=== PATIENT | male | born 1985 | race Caucasian/White ===

== ENCOUNTER 2017-07-04 19:52 | Emergency (ER) | payer OTHER ==
[~2017-07-04] VITALS: Ht 182.9 cm; Wt 139.6 kg
[~2017-07-04 19:52] MED LIST: LEVO500T19 PO; PRED10TA PO
[2017-07-04 19:58] VITALS: TEMP 36.4; Ht 182.9 cm; Wt 139.6 kg
[2017-07-04] MEDS ORDERED: LORAZEPAM 1 MG TAB PO STA (20:11)
--- NOTE | 2017-07-04 20:22 | EMERGENCY ROOM VISIT NOTE ---
History Report prepared by Aaron: William Green Under the Supervision of: Dr. Sin Richter M.D. First contact with patient: 19:54 Stated Complaint: SOB History of Present Illness The patient is a 32 year old male with a past medical history of bronchopneumonia, hypertension, and hyperlipidemia who presents to the ED with a cc of constant SOB beginning an hour ago. Positive for chest pain. Negative for nausea, vomiting, and leg edema. The patient states that he has a history of anxiety, and notes that his current symptoms feel similar to his previous anxiety attacks. He reports that his symptoms worsen when he takes a deep breath. The patient states that he feels a pressure in his chest but notes that it felt like he "tore a muscle in his chest" earlier. He notes that his chest pain went away on its own. He reports that he got over a cough and cold a few weeks ago. The patient states that he does not have a history of blood clots. Source of History: patient Onset: an hour ago Position: other (lungs) Quality: other (SOB) Timing: constant Modifying Factors (Worsening): breathing (deeply) Associated Symptoms: + chest pain, No nausea, No vomiting Note: The patient denies any leg edema. Review of Systems See HPI for pertinent positives and negatives. A total of ten systems were reviewed and were otherwise negative. Past Medical & Surgical Medical Problems: (1) Bronchopneumonia (2) Chest pain (3) Fracture, tooth (4) Hyperlipidemia (5) Hypertension (6) Nasal laceration (7) Overdose (8) Pain, dental (9) Shoulder contusion (10) Sprain of trapezium Family History FHx: cancer Heart disease Social History Smoking Status: Current Every Day Smoker Alcohol Use: occasionally Drug Use: marijuana Marital Status: single, Occupation Status: employed Current/Historical Medications No Active Prescriptions or Reported Meds Allergies Coded Allergies: Codeine (Verified Allergy, Mild, HIVES, 07/04/17) Penicillins (Verified Allergy, Unknown, rash,sob, 07/04/17) Physical Exam Vital Signs Date Time Temp Pulse Resp B/P (MAP) Pulse Ox O2 Delivery O2 Flow Rate FiO2 07/04/17 21:35 94 16 102/78 98 Room Air 07/04/17 19:58 36.4 119 16 137/89 97 Room Air 07/04/17 19:57 97 Room Air Physical Exam GENERAL: Awake, alert, well-appearing, NAD, obese, has tobacco in his mouth. HENT: Normocephalic, atraumatic. EYES: Normal conjunctiva. Sclera non-icteric. NECK: Supple. No nuchal rigidity. FROM. RESPIRATORY: CTAB, no rhonchi, wheezing, crackles CARDIAC: RRR, no MRG ABDOMEN: Soft, NTND, BS+ MSK: No chest wall TTP, no LE edema, negative Dwight's sign in legs. NEURO: GCS 15, CN 2-12 intact, moves all 4s on command SKIN: No rash or jaundice noted. Medical Decision & Procedures ER Provider Diagnostic Interpretation: Radiology results as stated below per my review and radiologist interpretation: SINGLE VIEW CHEST FINDINGS: 2 AP, portable, upright chest radiographs are compared to study dated 09/03/2015. The examination is degraded by portable technique and patient rotation. The cardiomediastinal silhouette is unremarkable. There is mild chronic elevation of the right hemidiaphragm. The lungs and pleural spaces are clear. No pneumothorax is seen. The bony thorax is grossly intact. IMPRESSION: No active disease in the chest. Electronically signed by: Jeevan Luo M.D. 07/04/2017 8:38 PM Medications Administered Medications (Trade) Dose Ordered Sig/Noemí Route Start Time Stop Time Status Last Admin Dose Admin Lorazepam (Ativan Tab) 1 mg NOW STAT PO 07/04/17 20:11 07/04/17 20:12 DC 07/04/17 20:26 1 MG ECG Per My Interpretation Indication: SOB/dyspnea Rate (beats per minute): 105 Rhythm: sinus tachycardia Findings: other (Normal intervals, right axis deviation, no STS changes or TWI) ED Course 1954: The patient was evaluated in room A12. A complete history and physical exam was performed. 2102: I reevaluated and updated the patient. 2137: I reevaluated the patient. Discussed results and discharge instructions: He verbalized understanding and agreement. The patient is ready for discharge. Medical Decision Nursing notes reviewed. Ancillary studies and prior records reviewed. The patient is a 32 year old male with a past medical history of bronchopneumonia, hypertension, and hyperlipidemia who presents to the ED with a cc of constant SOB beginning an hour ago. Positive for chest pain. Negative for nausea, vomiting, and leg edema. Differential diagnosis: Etiologies such as cardiac ischemia, aortic dissection, pulmonary embolism, pneumonia, pneumothorax, musculoskeletal, infections, pericarditis, myocarditis , esophageal rupture, gastrointestinal, as well as others were entertained. Patient was seen and evaluated the bedside. Patient was complaining of some shortness of breath. Patient did complain of some mild chest discomfort. It is nonexertional. Patient denies any hemoptysis, history of DVT or PE. Patient does have some early family history of his mother having an IN in her 40s. Patient is using tobacco at the bedside. Patient was told to dispose of this. Patient does state that he does have a history of some anxiety. Patient did have an EKG and a chest x-ray. Patient's chest x-ray is unremarkable. Patient's tachycardia resolved after being given some Ativan and after no longer chewing tobacco. Patient's EKG shows sinus tachycardia. Patient would be PERC positive. Patient will score of 1 less likely PE. Patient does not have any signs of ischemia seen on his EKG. Patient does have risk factors and was told that he does need to follow-up with his PCP. Given the patient's history and physical exam does not sound cardiac in nature and this may be more likely related to his anxiety as he felt improved after the Ativan and his tachycardia resolved. Patient stated that he would follow-up with his PCP. Patient was given strict follow-up, discharge, and return precautions. All questions were answered. Patient was deemed suitable for outpatient follow-up at this time. Patient agreed with the plan of care and was safely discharged home. Medication Reconcilliation Current Medication List: was personally reviewed by me Blood Pressure Screening Patient's blood pressure: Normal blood pressure Blood pressure disposition: Did not require urgent referral Impression Primary Impression: Chest pain Additional Impression: Tobacco abuse counseling Scribe Attestation The scribe's documentation has been prepared under my direction and personally reviewed by me in its entirety. I confirm that the note above accurately reflects all work, treatment, procedures, and medical decision making performed by me. Departure Information Dispostion Home / Self-Care Prescriptions No Active Prescriptions or Reported Meds Referrals Alice Márquez C.R.N.P. (PCP) Forms HOME CARE DOCUMENTATION FORM, IMPORTANT VISIT INFORMATION Patient Instructions Anxiety Body Response, Chest Pain - [facility], ED Smoking Cessation, [facility] Additional Instructions Please return to the emergency department if you have worsening or recurrent symptoms not amenable to at-home treatment. Please call for a follow-up appointment with her primary care physician. Please take your medications as prescribed. If you have other concerns and/or complaints please feel free to also call your primary care physician's office or return the ED for further evaluation, management, and treatment. You were found to have an elevated blood pressure today (>120 sytolic or >90 diastolic). Per medicare guidelines, you need to follow up with this blood pressure screening with your Primary Care Physician (PCP). For a new PCP call [phone]. Please follow-up with your primary care physician. Please return if you have any worsening symptoms, lower extremity swelling, or coughing up blood. Please consider tobacco cessation. You may take tylenol 650 mg every 6 hours as needed for pain. Take your medications as prescribed. If taking an antibiotic consider taking a probiotic and/or eating yogurt, but at the least, please take with food as it can cause upset stomach. If culture results are not available at discharge, if they are positive for concern of infection, you will be informed of the results as soon as they are available. If you were seen between 11pm and 7AM all radiology reads will be re-read by our in house staff. If any major discrepancies are discovered, you will be notified. You have been examined and treated today on an emergency basis only. This is not a substitute for, or an effort to provide, complete comprehensive medical care. It is impossible to recognize and treat all injuries or illnesses in a single emergency department visit. It is therefore important that you follow up closely with [facility], your PCP, and/or your specialist(s). Call as soon as possible for an appointment. Thank you for your time and consideration. I look forward to speaking with you again soon. Please don't hesitate to call us if you have any questions. Problem Qualifiers Primary Impression: Chest pain Chest pain type: unspecified Qualified Codes: R07.9 - Chest pain, unspecified
--- NOTE | 2017-07-04 20:39 | DIAGNOSTIC IMAGING REPORT ---
SINGLE VIEW CHEST CLINICAL HISTORY: Dyspnea. Atypical chest pain. FINDINGS: 2 AP, portable, upright chest radiographs are compared to study dated 09/03/2015. The examination is degraded by portable technique and patient rotation. The cardiomediastinal silhouette is unremarkable. There is mild chronic elevation of the right hemidiaphragm. The lungs and pleural spaces are clear. No pneumothorax is seen. The bony thorax is grossly intact. IMPRESSION: No active disease in the chest. Electronically signed by: Jeevan Luo M.D. 07/04/2017 8:38 PM Dictated Date/Time: 07/04/2017 8:37 PM
[2017-07-04 21:35] VITALS: BP 102/78; PULSE 94; O2SAT 98
== END 2017-07-04 21:46 | disposition home or self-care (01) ==
LOC: EDBD 19:52 → C.EDA 19:53
DX: R07.9 Chest pain, unspecified (principal); F17.200 Nicotine dependence, unspecified, uncomplicated; E78.5 Hyperlipidemia, unspecified; I10 Essential (primary) hypertension; Z82.49 Family history of ischemic heart disease and other diseases of the circulatory system; F12.90 Cannabis use, unspecified, uncomplicated; Z88.5 Allergy status to narcotic agent; Z88.0 Allergy status to penicillin

== ENCOUNTER 2021-06-11 15:21 | Inpatient (IN) ==
--- NOTE | 2021-06-11 15:46 | Emergency Department Note ---
Impression & Plan Depression with suicidal ideation, Nicotine dependence ED Provider Note NAME: JUSTYN PINK AGE: 35 SEX: M : 1985 ARRIVES VIA: [employer] INFORMANT: Patient, ED PROVIDER(S): Sin Richter MD Chief Complaint: Concern for mental wellness HPI: Patient presents due to concern for mental wellness. Police had reported the patient had run out of his home with a knife stating that he was in a harm himself. The patient currently denies this at this time. The patient relates that he did have a breakdown today. The patient was having some issues with his car had called his brother Kiran who is stated that he would get his car fixed at a dealership if he came and worked at his [email or web address] shop for the amount of time it took to pay off his debt for the vehicle. Patient was able to fix the car with a friend and thus no longer needed to go to his brothers but his brother essentially stated that if he is not going to come down regardless he does not want to speak with him again. Patient denies any current SI, HI, or AVH. The patient denies any psych history. The patient does admit to using cigarettes but denies any alcohol or drug use outside of marijuana. Patient reportedly was arrested for heroin use per case management. Patient states his sleep and appetite been appropriate. ROS: See HPI for pertinent positives and negatives. A total of 10 systems were reviewed and otherwise negative. Past medical history: See below Surgical history: See below Social history: See below Physical Exam: GENERAL: NAD, wearing a mask, non-toxic. EYE EXAM: Normal conjunctiva. PERRL, no anisocoria and EOM's grossly intact w/o pain. NECK: Supple, no nuchal rigidity, no adenopathy, non-tender. No signs of meningismus. LUNGS: Clear to auscultation. Normal chest wall mechanics. HEART: NSR, no MRG. ABDOMEN: Abdomen soft, non-tender, normo-active bowel sounds, no masses, no rebound or guarding. BACK: No CVA TTP. SKIN: No rashes and no bruising. UPPER EXTREMITIES: Upper extremities are grossly normal. LOWER EXTREMITIES: Grossly normal, no edema. NEURO EXAM: A&O x3, cranial nerves II-XII grossly intact, normal speech, moves all 4 extremities on command w/o issue. Differential diagnoses: Mood disorder, infection, hypoglycemia, electrolyte abnormalities, cardiac sources, intracerebral event, toxicologic, trauma, neurologic, as well as other pathologies. Course: Patient was seen and evaluated the bedside. Full history physical exam was performed. MDM: Patient was seen due to concern for mental wellness. Blood work was obtained and the patient was deemed medically cleared and seen and evaluated by the psych returned case inspector. Was recommended that the patient stay for inpatient treatment. The 302 was upheld. Referral was made to 3 S. patient was signed out to Dr. Peña pending reevaluation and disposition. Past Med/Surg History Medical History Hyperlipidemia Hypertension Surgical History History of cholecystectomy Hx of appendectomy Family History Mother Breast cancer Myocardial infarction Grandfather (Maternal) Myocardial infarction Grandmother (Maternal) Myocardial infarction Aunt Myocardial infarction Uncle Myocardial infarction Denies family history of Ovarian cancer Prostate cancer Colorectal cancer Social History Smoking Status: Current every day smoker Tobacco Type: Cigarettes Age Started Using Tobacco: 35; packs per day: 0.5; Years Smoked: 1; Cigarettes Per Day: 10-cig/day, patient also vapes and chews tobacco-1 can /3days; Second Hand Exposure: Yes; Hx Alcohol Use: No Hx Substance Use: No Preferred Language: Armenian Communication Ability: Effective Visual Impairment: No Limitations Hearing Ability: Normal Wire Frame Dipper Required: No marital status: Current Living Situation: Spouse and Family current occupational status: employed current occupation: Cook How many Children do You have: 3 Feels Safe at Home: Yes Childhood Exposure to Second-Hand Smoke: Yes caffeine: Yes during the past year weight has: decreased > 10 lbs Dental Care, Regularly: Yes Physical Activity Frequency: Daily Seatbelt Use: never Sunscreen Use: No Assistive Devices: None Allergies Allergies Allergy/AdvReac Type Severity Reaction Status Date / Time codeine Allergy Mild HIVES Verified 06/11/21 16:34 Penicillins Allergy Unknown rash,sob Verified 06/11/21 16:34 Home Meds Home Medications Medication Instructions Recorded Confirmed No Known Home Medications 06/11/21 06/11/21 Results & Data (ED) Vital Signs Vital Signs - 24 hr 06/11/21 15:46 Temperature 36.4 C L Temperature Source Oral Pulse Rate 108 H Respiratory Rate 18 Blood Pressure 150/108 H Blood Pressure Mean 122 Pulse Oximetry 98 Oxygen Delivery Method Room Air Sepsis Recent Fever Within 48 Hours No Sepsis New/Unexplained Change in Mental Status No Sepsis Action Taken by Nursing No Action Required Home Medications Current Medication List: was personally reviewed by me Laboratory Data Attestation: I reviewed the patient's lab results. Result diagrams: 06/11/21 16:34 06/11/21 16:34 Lab Results 06/11/21 06/11/21 06/11/21 Range/Units 16:34 16:34 16:34 WBC 9.37 (4.8-10.8) K/uL RBC 5.14 (4.7-6.1) M/uL Hgb 16.3 (14.0-18.0) g/dL Hct 46.9 (42-52) % MCV 91.2 (80-100) fL MCH 31.7 (25-34) pg MCHC 34.8 (32-36) g/dL RDW Std Deviation 43.8 (36.4-46.3) fL RDW Coeff of [place] 13.0 (11.5-14.5) % Plt Count 310 (130-400) K/uL MPV 9.6 (7.4-10.4) fL Immature Gran % (Auto) 0.3 % Neut % (Auto) 74.8 % Lymph % (Auto) 14.1 % [place] % (Auto) 8.1 % Eos % (Auto) 2.1 % Baso % (Auto) 0.6 % Neut # (Auto) 7.00 H (1.4-6.5) K/uL Lymph # (Auto) 1.32 (1.2-3.4) K/uL [place] # (Auto) 0.76 H (0.11-0.59) K/uL Eos # (Auto) 0.20 (0-0.5) K/uL Baso # (Auto) 0.06 (0-0.2) K/uL Immature Gran # (Auto) 0.03 H (0.00-0.02) K/uL Sodium 140 (136-145) mmol/L Potassium 4.0 (3.5-5.1) mmol/L Chloride 105 (98-107) mmol/L Carbon Dioxide 28 (21-32) mmol/L Anion Gap 7 (3-11) BUN 12 (6-23) mg/dl Creatinine 0.93 (0.6-1.4) mg/dl Est Cr Clr Drug Dosing 130.3 ml/min Est GFR ( Amer) 122.8 ml/min Est GFR (Non-Af Amer) 106.0 ml/min BUN/Creatinine Ratio 12.9 (10-20) Glucose 87 (70-99(Fasting)) mg/dl Calcium 9.9 (8.5-10.1) mg/dl Total Bilirubin 0.5 (0.2-1.0) mg/dl AST 53 H (13-39) U/L ALT 102 H (7-52) U/L Alkaline Phosphatase 67 (34-104) U/L Total Protein 8.1 (6.0-8.3) gm/dl Albumin 4.6 (3.4-5.0) gm/dl Globulin 3.5 (2.5-4.0) gm/dl Albumin/Globulin Ratio 1.3 (0.9-2) TSH 0.986 (0.300-4.500) uIu/ml Urine Color Urine Appearance (Clear) Urine pH (4.5-7.5) Ur Specific [place] (1.000-1.030) Urine Protein (Negative) Urine Glucose (UA) (Negative) Urine Ketones (Negative) Urine Blood (Negative) Urine Nitrite (Negative) Urine Bilirubin (Negative) Urine Urobilinogen (Negative) Ur Leukocyte Esterase (Negative) Salicylates (3.0-30) mg/dl Urine Opiates Screen (Neg) Ur Methadone, Qual (Neg) Acetaminophen (10-30) ug/ml Urine Barbiturates (Neg) Ur Phencyclidine (PCP) (Neg) U Amphetamin/Meth Scrn (Neg) MDMA (Ecstasy) Screen (Neg) U Benzodiazepines Scrn (Neg) Ur Cocaine Metabolite (Neg) U Marijuana (THC) Screen (Neg) Ethyl Alcohol mg/dL (<10.0) mg/dl 06/11/21 06/11/21 06/11/21 Range/Units 16:34 16:34 16:40 WBC (4.8-10.8) K/uL RBC (4.7-6.1) M/uL Hgb (14.0-18.0) g/dL Hct (42-52) % MCV (80-100) fL MCH (25-34) pg MCHC (32-36) g/dL RDW Std Deviation (36.4-46.3) fL RDW Coeff of [place] (11.5-14.5) % Plt Count (130-400) K/uL MPV (7.4-10.4) fL Immature Gran % (Auto) % Neut % (Auto) % Lymph % (Auto) % [place] % (Auto) % Eos % (Auto) % Baso % (Auto) % Neut # (Auto) (1.4-6.5) K/uL Lymph # (Auto) (1.2-3.4) K/uL [place] # (Auto) (0.11-0.59) K/uL Eos # (Auto) (0-0.5) K/uL Baso # (Auto) (0-0.2) K/uL Immature Gran # (Auto) (0.00-0.02) K/uL Sodium (136-145) mmol/L Potassium (3.5-5.1) mmol/L Chloride (98-107) mmol/L Carbon Dioxide (21-32) mmol/L Anion Gap (3-11) BUN (6-23) mg/dl Creatinine (0.6-1.4) mg/dl Est Cr Clr Drug Dosing ml/min Est GFR ( Amer) ml/min Est GFR (Non-Af Amer) ml/min BUN/Creatinine Ratio (10-20) Glucose (70-99(Fasting)) mg/dl Calcium (8.5-10.1) mg/dl Total Bilirubin (0.2-1.0) mg/dl AST (13-39) U/L ALT (7-52) U/L Alkaline Phosphatase (34-104) U/L Total Protein (6.0-8.3) gm/dl Albumin (3.4-5.0) gm/dl Globulin (2.5-4.0) gm/dl Albumin/Globulin Ratio (0.9-2) TSH (0.300-4.500) uIu/ml Urine Color Yellow Urine Appearance Clear (Clear) Urine pH 5.5 (4.5-7.5) Ur Specific [place] 1.014 (1.000-1.030) Urine Protein Negative (Negative) Urine Glucose (UA) Negative (Negative) Urine Ketones Negative (Negative) Urine Blood Negative (Negative) Urine Nitrite Negative (Negative) Urine Bilirubin Negative (Negative) Urine Urobilinogen Negative (Negative) Ur Leukocyte Esterase Negative (Negative) Salicylates < 3.0 L (3.0-30) mg/dl Urine Opiates Screen (Neg) Ur Methadone, Qual (Neg) Acetaminophen < 3 L (10-30) ug/ml Urine Barbiturates (Neg) Ur Phencyclidine (PCP) (Neg) U Amphetamin/Meth Scrn (Neg) MDMA (Ecstasy) Screen (Neg) U Benzodiazepines Scrn (Neg) Ur Cocaine Metabolite (Neg) U Marijuana (THC) Screen (Neg) Ethyl Alcohol mg/dL < 10.0 (<10.0) mg/dl 06/11/21 Range/Units 16:40 WBC (4.8-10.8) K/uL RBC (4.7-6.1) M/uL Hgb (14.0-18.0) g/dL Hct (42-52) % MCV (80-100) fL MCH (25-34) pg MCHC (32-36) g/dL RDW Std Deviation (36.4-46.3) fL RDW Coeff of [place] (11.5-14.5) % Plt Count (130-400) K/uL MPV (7.4-10.4) fL Immature Gran % (Auto) % Neut % (Auto) % Lymph % (Auto) % [place] % (Auto) % Eos % (Auto) % Baso % (Auto) % Neut # (Auto) (1.4-6.5) K/uL Lymph # (Auto) (1.2-3.4) K/uL [place] # (Auto) (0.11-0.59) K/uL Eos # (Auto) (0-0.5) K/uL Baso # (Auto) (0-0.2) K/uL Immature Gran # (Auto) (0.00-0.02) K/uL Sodium (136-145) mmol/L Potassium (3.5-5.1) mmol/L Chloride (98-107) mmol/L Carbon Dioxide (21-32) mmol/L Anion Gap (3-11) BUN (6-23) mg/dl Creatinine (0.6-1.4) mg/dl Est Cr Clr Drug Dosing ml/min Est GFR ( Amer) ml/min Est GFR (Non-Af Amer) ml/min BUN/Creatinine Ratio (10-20) Glucose (70-99(Fasting)) mg/dl Calcium (8.5-10.1) mg/dl Total Bilirubin (0.2-1.0) mg/dl AST (13-39) U/L ALT (7-52) U/L Alkaline Phosphatase (34-104) U/L Total Protein (6.0-8.3) gm/dl Albumin (3.4-5.0) gm/dl Globulin (2.5-4.0) gm/dl Albumin/Globulin Ratio (0.9-2) TSH (0.300-4.500) uIu/ml Urine Color Urine Appearance (Clear) Urine pH (4.5-7.5) Ur Specific [place] (1.000-1.030) Urine Protein (Negative) Urine Glucose (UA) (Negative) Urine Ketones (Negative) Urine Blood (Negative) Urine Nitrite (Negative) Urine Bilirubin (Negative) Urine Urobilinogen (Negative) Ur Leukocyte Esterase (Negative) Salicylates (3.0-30) mg/dl Urine Opiates Screen Neg (Neg) Ur Methadone, Qual Neg (Neg) Acetaminophen (10-30) ug/ml Urine Barbiturates Neg (Neg) Ur Phencyclidine (PCP) Neg (Neg) U Amphetamin/Meth Scrn Neg (Neg) MDMA (Ecstasy) Screen Neg (Neg) U Benzodiazepines Scrn Neg (Neg) Ur Cocaine Metabolite Neg (Neg) U Marijuana (THC) Screen Pos H (Neg) Ethyl Alcohol mg/dL (<10.0) mg/dl Discharge Plan Visit Data Chief Complaint: Mental Health Evaluation Stated Complaint: MENTAL HEALTH EVAL ED Provider: Sin Richter Discharge Problem: Depression with suicidal ideation, Nicotine dependence Patient Disposition: Still a Patient Forms Stand Alone Forms: [facility], Suicide Prevention Resources Prescriptions Prescriptions: No Action No Known Home Medications RF: 0 Referrals Referrals: Rose Black MD [Primary Care Provider] -
[2021-06-11 16:53] LABS: Appearance Urine Clear (Clear); Bilirubin Urine Negative (Negative); Blood Urine Negative (Negative); Color Urine Yellow; Glucose Urine UA Negative (Negative); Ketones Urine Negative (Negative); Leukocyte Esterase Urine Negative (Negative); Nitrite Urine Negative (Negative); Protein Urine Negative (Negative); Specific Gravity Urine 1.014 (1.000-1.030); Urobilinogen Urine Negative (Negative); pH Urine 5.5 (4.5-7.5)
[2021-06-11 17:01] LABS: Basophils # (auto) 0.06 K/uL (0-0.2); Basophils % (auto) 0.6 %; Eosinophils % (auto) 2.1 %; Hematocrit (blood only) 46.9 % (42-52); Hemoglobin 16.3 g/dL (14.0-18.0); Immature Granulocytes # (auto) 0.03 K/uL (0.00-0.02); Immature Granulocytes % (auto) 0.3 %; Lymphocytes # (auto) 1.32 K/uL (1.2-3.4); Lymphocytes % (auto) 14.1 %; Mean Corpuscular Hemoglobin 31.7 pg (25-34); Mean Corpuscular Hgb Conc 34.8 g/dL (32-36); Mean Corpuscular Volume 91.2 fL (80-100); Mean Platelet Volume 9.6 fL (7.4-10.4); Monocytes # (auto) 0.76 K/uL (0.11-0.59); Monocytes % (auto) 8.1 %; Neutrophils % (auto) 74.8 %; Platelet Count 310 K/uL (130-400); RDW Standard Deviation 43.8 fL (36.4-46.3); Red Blood Count 5.14 M/uL (4.7-6.1); White Blood Count 9.37 K/uL (4.8-10.8)
[2021-06-11 17:13] LABS: Amphetamines+Metham, Urine Neg (Neg); Barbiturates, Urine Neg (Neg); Benzodiazepine, Urine Neg (Neg); Cocaine, Urine Neg (Neg); MDMA (Ecstacy), Urine Neg (Neg); Methadone, Urine Neg (Neg); Opiate, Urine Neg (Neg); Phencyclidine, Urine Neg (Neg)
[2021-06-11 17:20] LABS: Albumin Globulin Ratio 1.3 (0.9-2); Albumin Level 4.6 gm/dl (3.4-5.0); BUN Creatinine Ratio 12.9 (10-20); Bilirubin,Total 0.5 mg/dl (0.2-1.0); Calcium 9.9 mg/dl (8.5-10.1); Creatinine Clr Calc Pharmacy 130.3 ml/min; Est GFR (African American) 122.8 ml/min; Globulin 3.5 gm/dl (2.5-4.0); Total Protein 8.1 gm/dl (6.0-8.3)
[2021-06-11 17:30] LABS: Acetaminophen < 3 ug/ml (10-30); Salicylate < 3.0 mg/dl (3.0-30)
[2021-06-11] MEDS ORDERED: HALOPERIDOL LACTATE 5 MG/ML 1 ML VIAL IM STA (19:25)
[2021-06-11] MEDS ORDERED: LORazepam 2 MG/1 ML VIAL IM STA (19:25)
[2021-06-11] MEDS ORDERED: NICOTINE 21 MG/24 HR TDSY TD STA (22:23)
[2021-06-11] MEDS ORDERED: ACETAMINOPHEN 500 MG TAB PO STA (22:23)
[2021-06-12] MEDS ORDERED: ALUMINUM/MAGNESIUM SUSP 30 ML UDC PO PRN (00:19)
[2021-06-12] MEDS ORDERED: MAGNESIUM HYDROXIDE SUSP 30 ML UDC PO PRN (00:19)
[2021-06-12] MEDS ORDERED: SODIUM CHLORIDE 0.65% NA SOLN 45 ML (OCEAN) PRN (00:19)
[2021-06-12] MEDS ORDERED: BISMUTH SUBSALICYLATE LIQD 236 ML PO PRN (00:19)
[2021-06-12] MEDS ORDERED: ACETAMINOPHEN 325 MG TAB PO PRN (00:19)
[2021-06-12] MEDS ORDERED: hydrOXYzine HCl 25 MG TAB PO PRN ×2 (00:19)
[2021-06-12] MEDS ORDERED: haloperidoL 5 MG TAB PO PRN (06:53)
[2021-06-12] MEDS ORDERED: HALOPERIDOL LACTATE 5 MG/ML 1 ML VIAL IM PRN ×2 (06:55→13:12)
[2021-06-12] MEDS ORDERED: LORazepam 2 MG/1 ML VIAL IM PRN (06:56)
[2021-06-12] MEDS ORDERED: LORazepam 1 MG TAB PO PRN (06:57)
--- NOTE | 2021-06-12 12:57 | History & Physical ---
Date of Service June 12, 2021 Impression / Recommendations Impression Stephane is a 35 yo male with a reported (third libertarian) Wellbutrin OD this summer, hx of substance abuse with legal ramifications, hx of [facility] time/felony conviction who has been increasingly irritable in the past few days due to financial and relationship stressors. There is no evidence of cynthia or psychosis on exam. Differential includes unspecified impulse control disorder, intermittent explosive disorder, personality disorder (antisocial vs. borderline PD), and adjustment disorder. (1) Intermittent explosive disorder: The patient was admitted to the [facility] ([facility] mental health unit) on q15 min checks (behavioral with suicide precautions) for safety. The patient denies need for outpatient follow up and is difficult to engage in group programming as he is so focussed on discharge. Brother was contacted for additional collateral and states patient has never acted out with him, he is working with patient's girlfriend and separately with patient here on safety planning. The patient's girlfriend was educated re: [place] [facility] and is in the process of vacating the apartment to stay with family. Inventory Assets Strengths: supportive brother. Has not required prns Needs: improved coping skills, structured work programming Risk Factors Assessment Male: Yes : Yes Do You Have Access To A Gun?: No Substance Use Disorders: Yes (past) Previous Attempt: Yes (he and girlfriend differ on reports) Previous Psychiatric Hospitalization: No Protective Factors Assessment Employed: No (lost job 3 days ago) Stable Relationships: No Supportive Family: Yes Psychiatric History Identifying Data STEPHANE PINK is a 35-year-old M who currently lives in [place], has no formal psych history, and was admitted on 06/12/21 00:20 on a 302 involuntary commitment for suicidal threats. Chief Complaint "I don't need to be here, you can ask anyone. This is really going to mess up my job". History of Present Illness Patient presented to the ED on a box B warrant by police for reportedly having disruptive behavior outside of his apartment, threatening to kill himself with a knife. The patient is quite irritable re: his "being put in the crazy gonzalez" when he is Oriental Orthodox and would never harm himself. He admits he has been under alot of stress since Sunday when he and then his girlfriend loss their jobs and his Jeep broke down. 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 He believes it was his girlfriend who called the police and states that he grabbed a knife impulsively as upset and couldn't process how to move 3 hours away so quickly and didn't want to argue with his brother. He denies leaving their unit with a knife, "I just threw it right back into the sink". He cannot describe the knife, "it was just there". He denies any psychiatric symptoms prior to Sunday and states it's his right to get angry. He states that his girlfriend is traumatized over what happened with the police and they will face significant financial difficulties if he is not able to "pack up and move today to start work tomorrow." He gave permission to speak with his girlfriend and brother for collateral. He states that his brother had arranged for 2 weeks in a hotel for him to get settled. Of note he has been incarcerated in the past for charges such as corruption of minors, drug paraphenalia. There is no evidence that he is currently on probation but he has charges pending. Staff spoke with girlfrienkenneth who notes there are no guns in the home (patient has a hx of felony conviction). She reported calling police out of fear for herself and patient as he has made threats in the past to harm her and her ex-. She denied being threatened in yesterday's outburst. She does not plan to file a PFA. She reports that he had Wellbutrin OD in the summer which was significant enough to cause a seizure but she did not involve crisis at that time out of fear of retribution. She does not plan to relocate with patient to [place] tomorrow and plans to move out and end the relationship. Past Psychiatric History Current Psychiatric Diagnosis: denies psychiatric diagnosis Outpatient Services: none Previous Psych Admissions: none Do You Have Access To A Gun?: No Describe Attempts in the Past: patient denies ever taking Wellbutrin, surescripts verifies script Past Medication Trials: denies but see Wellbutrin comment Additional Notes: unclear if he was abusing Wellbutrin or if intentional OD, girlfriend reports witnessing a seizure Allergies Allergy/AdvReac Type Severity Reaction Status Date / Time codeine Allergy Mild HIVES Verified 06/11/21 16:34 Penicillins Allergy Unknown rash,sob Verified 06/11/21 16:34 Home Medications Medication Instructions Recorded Confirmed Type No Known Home Medications 06/11/21 06/11/21 History Family History Family History of: None Alcohol History Hx of Alcohol Use Over the Past 12 Months: No AUDIT Total Score: 0 Smoking Use Have You Smoked or Used Tobacco Products in the Last 30 Days: Yes tobacco type: cigarettes and e-cigarettes Smoking Status: Current every day smoker Smoking packs per day: 2 Substance History Hx of Prescription Med Misuse Over the Past 12 Months: No Hx of Over the Counter Med Misuse Over the Past 12 Months: No Hx of Inhalent Misuse Over the Past 12 Months: No Hx of Organic Substance Use Over the Past 12 Months: Yes (often 06/11/2021) Hx of Illegal Substances/Street Drug Use Over Past 12 Months: Yes (patient was arrested for heroin use per nurse case manager) Problems as a Result of Past Substance Use: Job Loss and Arrested Personal History Living Arrangements: Apartment Employment Status: Unemployed Marital Status: Living w/ Signif. Other Beliefs That Will Affect Care: None Current Legal Problems: Yes (see HPI) Patient History Medical History Hyperlipidemia Hypertension Surgical History History of cholecystectomy Hx of appendectomy Family History Mother Breast cancer Myocardial infarction Grandfather (Maternal) Myocardial infarction Grandmother (Maternal) Myocardial infarction Aunt Myocardial infarction Uncle Myocardial infarction Denies family history of Ovarian cancer Prostate cancer Colorectal cancer Social History Smoking Status: Current every day smoker Tobacco Type: Cigarettes Age Started Using Tobacco: 35; packs per day: 0.5; Years Smoked: 1; Cigarettes Per Day: 10-cig/day, patient also vapes and chews tobacco-1 can /3days; Second Hand Exposure: Yes; Hx Alcohol Use: No Hx Substance Use: No Preferred Language: Faroese Communication Ability: Effective Visual Impairment: No Limitations Hearing Ability: Normal Fitness Professional Required: No Beliefs That Will Affect Care: None marital status: Current Living Situation: Spouse and Family current occupational status: employed current occupation: Cook How many Children do You have: 3 Feels Safe at Home: Yes Childhood Exposure to Second-Hand Smoke: Yes caffeine: Yes during the past year weight has: decreased > 10 lbs Dental Care, Regularly: Yes Physical Activity Frequency: Daily Seatbelt Use: never Sunscreen Use: No Assistive Devices: None Review of Systems Review of Systems: All systems reviewed & are unremarkable except as noted in HPI & below Physical Exam Psychiatric: Orientation: alert and oriented x 3 Apperance: appropriately dressed and appropriately groomed Eye Contact: good eye contact Motor Behavior: no abnormal motor movements Speech: + loud speech (but not pressured) Affect: + irritable affect Mood: + angry mood Thought Process: goal directed thought process Thought Content: reality based without delusions Suicidal Thoughts: denies suicidal thoughts Homicidal Thoughts: denies homicidal thoughts Hallucinations: no auditory hallucinations and no visual hallucinations Cognition: attention grossly intact and language grossly intact Estimated Intelligence: consistent with education level Insight: + limited insight Judgement: + limited judgement Vital Signs (Past 24 Hours): Last Vital Signs Temp 37 C 06/12/21 06:42 Pulse 94 H 06/12/21 06:43 Resp 16 06/12/21 06:42 BP 135/88 06/12/21 06:43 Pulse Ox 96 06/11/21 23:40 Exam Statement: A physical exam was performed in the ED by Dr. Richter for the purposes of medical clearance. I accept that physical as correct and adequate for the purposes of the inpatient physical exam. Results & Data ([facility]) Laboratory Results Laboratory Results - last 24 hr 06/11/21 06/11/21 06/11/21 16:34 16:34 16:34 WBC 9.37 RBC 5.14 Hgb 16.3 Hct 46.9 MCV 91.2 MCH 31.7 MCHC 34.8 RDW Std Deviation 43.8 RDW Coeff of Winston 13.0 Plt Count 310 MPV 9.6 Immature Gran % (Auto) 0.3 Neut % (Auto) 74.8 Lymph % (Auto) 14.1 Shelby % (Auto) 8.1 Eos % (Auto) 2.1 Baso % (Auto) 0.6 Neut # (Auto) 7.00 H Lymph # (Auto) 1.32 Shelby # (Auto) 0.76 H Eos # (Auto) 0.20 Baso # (Auto) 0.06 Immature Gran # (Auto) 0.03 H Sodium 140 Potassium 4.0 Chloride 105 Carbon Dioxide 28 Anion Gap 7 BUN 12 Creatinine 0.93 Est Cr Clr Drug Dosing 130.3 Est GFR ( Amer) 122.8 Est GFR (Non-Af Amer) 106.0 BUN/Creatinine Ratio 12.9 Glucose 87 Calcium 9.9 Total Bilirubin 0.5 AST 53 H ALT 102 H Alkaline Phosphatase 67 Total Protein 8.1 Albumin 4.6 Globulin 3.5 Albumin/Globulin Ratio 1.3 TSH 0.986 Urine Color Urine Appearance Urine pH Ur Specific [place] Urine Protein Urine Glucose (UA) Urine Ketones Urine Blood Urine Nitrite Urine Bilirubin Urine Urobilinogen Ur Leukocyte Esterase Nasal Screen MRSA (PCR) Salicylates Urine Opiates Screen Ur Methadone, Qual Acetaminophen Urine Barbiturates Ur Phencyclidine (PCP) U Amphetamin/Meth Scrn MDMA (Ecstasy) Screen U Benzodiazepines Scrn Ur Cocaine Metabolite U Marijuana (THC) Screen U Marijuana THC Carboxy Drug Screen Comment Ethyl Alcohol mg/dL SARS-CoV-2, RNA, NAAT 06/11/21 06/11/21 06/11/21 16:34 16:34 16:40 WBC RBC Hgb Hct MCV MCH MCHC RDW Std Deviation RDW Coeff of [place] Plt Count MPV Immature Gran % (Auto) Neut % (Auto) Lymph % (Auto) [place] % (Auto) Eos % (Auto) Baso % (Auto) Neut # (Auto) Lymph # (Auto) [place] # (Auto) Eos # (Auto) Baso # (Auto) Immature Gran # (Auto) Sodium Potassium Chloride Carbon Dioxide Anion Gap BUN Creatinine Est Cr Clr Drug Dosing Est GFR ( Amer) Est GFR (Non-Af Amer) BUN/Creatinine Ratio Glucose Calcium Total Bilirubin AST ALT Alkaline Phosphatase Total Protein Albumin Globulin Albumin/Globulin Ratio TSH Urine Color Yellow Urine Appearance Clear Urine pH 5.5 Ur Specific [place] 1.014 Urine Protein Negative Urine Glucose (UA) Negative Urine Ketones Negative Urine Blood Negative Urine Nitrite Negative Urine Bilirubin Negative Urine Urobilinogen Negative Ur Leukocyte Esterase Negative Nasal Screen MRSA (PCR) Salicylates < 3.0 L Urine Opiates Screen Ur Methadone, Qual Acetaminophen < 3 L Urine Barbiturates Ur Phencyclidine (PCP) U Amphetamin/Meth Scrn MDMA (Ecstasy) Screen U Benzodiazepines Scrn Ur Cocaine Metabolite U Marijuana (THC) Screen U Marijuana THC Carboxy Drug Screen Comment Ethyl Alcohol mg/dL < 10.0 SARS-CoV-2, RNA, NAAT 06/11/21 06/11/21 06/11/21 16:40 16:40 22:08 WBC RBC Hgb Hct MCV MCH MCHC RDW Std Deviation RDW Coeff of [place] Plt Count MPV Immature Gran % (Auto) Neut % (Auto) Lymph % (Auto) [place] % (Auto) Eos % (Auto) Baso % (Auto) Neut # (Auto) Lymph # (Auto) [place] # (Auto) Eos # (Auto) Baso # (Auto) Immature Gran # (Auto) Sodium Potassium Chloride Carbon Dioxide Anion Gap BUN Creatinine Est Cr Clr Drug Dosing Est GFR ( Amer) Est GFR (Non-Af Amer) BUN/Creatinine Ratio Glucose Calcium Total Bilirubin AST ALT Alkaline Phosphatase Total Protein Albumin Globulin Albumin/Globulin Ratio TSH Urine Color Urine Appearance Urine pH Ur Specific [place] Urine Protein Urine Glucose (UA) Urine Ketones Urine Blood Urine Nitrite Urine Bilirubin Urine Urobilinogen Ur Leukocyte Esterase Nasal Screen MRSA (PCR) Salicylates Urine Opiates Screen Neg Ur Methadone, Qual Neg Acetaminophen Urine Barbiturates Neg Ur Phencyclidine (PCP) Neg U Amphetamin/Meth Scrn Neg MDMA (Ecstasy) Screen Neg U Benzodiazepines Scrn Neg Ur Cocaine Metabolite Neg U Marijuana (THC) Screen Pos H U Marijuana THC Carboxy Pending Drug Screen Comment Pending Ethyl Alcohol mg/dL SARS-CoV-2, RNA, NAAT NEGATIVE 06/11/21 22:08 WBC RBC Hgb Hct MCV MCH MCHC RDW Std Deviation RDW Coeff of [place] Plt Count MPV Immature Gran % (Auto) Neut % (Auto) Lymph % (Auto) [place] % (Auto) Eos % (Auto) Baso % (Auto) Neut # (Auto) Lymph # (Auto) [place] # (Auto) Eos # (Auto) Baso # (Auto) Immature Gran # (Auto) Sodium Potassium Chloride Carbon Dioxide Anion Gap BUN Creatinine Est Cr Clr Drug Dosing Est GFR ( Amer) Est GFR (Non-Af Amer) BUN/Creatinine Ratio Glucose Calcium Total Bilirubin AST ALT Alkaline Phosphatase Total Protein Albumin Globulin Albumin/Globulin Ratio TSH Urine Color Urine Appearance Urine pH Ur Specific [place] Urine Protein Urine Glucose (UA) Urine Ketones Urine Blood Urine Nitrite Urine Bilirubin Urine Urobilinogen Ur Leukocyte Esterase Nasal Screen MRSA (PCR) Negative Salicylates Urine Opiates Screen Ur Methadone, Qual Acetaminophen Urine Barbiturates Ur Phencyclidine (PCP) U Amphetamin/Meth Scrn MDMA (Ecstasy) Screen U Benzodiazepines Scrn Ur Cocaine Metabolite U Marijuana (THC) Screen U Marijuana THC Carboxy Drug Screen Comment Ethyl Alcohol mg/dL SARS-CoV-2, RNA, NAAT Current Inpatient Medications Current Inpatient Medications: Current Inpatient Medications Acetaminophen (Acetaminophen 325 Mg Tab) 650 mg PO Q4H PRN PRN Reason: Headache or Minor Fever Stop: 07/12/21 00:18 Al Hydrox/Mg Hydrox/Simethicone (Aluminum/Magnesium Susp 30 Ml Udc) 30 ml PO Q4H PRN PRN Reason: GI Upset Stop: 07/12/21 00:18 Bismuth Subsalicylate (Bismuth Subsalicylate Liqd 236 Ml) 15 ml PO PRN PRN PRN Reason: Loose Stool Stop: 07/12/21 00:18 Haloperidol (Haloperidol 5 Mg Tab) 5 mg PO Q4 PRN PRN Reason: Anxiety Stop: 07/12/21 06:52 Haloperidol Lactate (Haloperidol Lactate 5 Mg/Ml 1 Ml Vial) 5 mg IM Q4 PRN PRN Reason: agitation r/t anxiety Stop: 07/12/21 06:54 Hydroxyzine HCl (Hydroxyzine Hcl 25 Mg Tab) 50 mg PO HSZ PRN PRN Reason: Insomnia Stop: 07/12/21 00:18 Hydroxyzine HCl (Hydroxyzine Hcl 25 Mg Tab) 25 mg PO Q4H PRN PRN Reason: Anxiety Stop: 07/12/21 00:18 Lorazepam (Lorazepam 2 Mg/1 Ml Vial) 2 mg IM Q4H PRN PRN Reason: Anxiety Stop: 07/12/21 06:55 Lorazepam (Lorazepam 1 Mg Tab) 2 mg PO Q4 PRN PRN Reason: Anxiety Stop: 07/12/21 06:56 Magnesium Hydroxide (Magnesium Hydroxide Susp 30 Ml Udc) 30 ml PO DAILY PRN PRN Reason: Constipation Stop: 07/12/21 00:18 Miscellaneous (Remove Nicoderm Patch) 1 ea N/A DAILY@[id number] [facility] Stop: 07/12/21 08:58 Last Admin: 06/12/21 08:29 Dose: Not Given Documented by: Sodium Chloride (Sodium Chloride 0.65% Na Soln 45 Ml ([place])) 1 - 2 sprays NA PRN PRN PRN Reason: Nasal Dryness/Congestion Stop: 07/12/21 00:18
[2021-06-12] MEDS ORDERED: BENZTROPINE MESYLATE 1 MG/ML 2 ML AMP IM PRN (13:12)
--- NOTE | 2021-06-12 14:00 | Discharge Summary ---
Date of Service June 12, 2021 History of Present Illness Patient presented to the ED on a box B warrant by police for reportedly having disruptive behavior outside of his apartment, threatening to kill himself with a knife. The patient is quite irritable re: his "being put in the crazy gonzalez" when he is Mandaen and would never harm himself. He admits he has been under alot of stress since Sunday when he and then his girlfriend loss their jobs and his Jeep broke down. 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 He believes it was his girlfriend who called the police and states that he grabbed a knife impulsively as upset and couldn't process how to move 3 hours away so quickly and didn't want to argue with his brother. He denies leaving their unit with a knife, "I just threw it right back into the sink". He cannot describe the knife, "it was just there". He denies any psychiatric symptoms prior to Sunday and states it's his right to get angry. He states that his girlfriend is traumatized over what happened with the police and they will face significant financial difficulties if he is not able to "pack up and move today to start work tomorrow." He gave permission to speak with his girlfriend and brother for collateral. He states that his brother had arranged for 2 weeks in a hotel for him to get settled. Of note he has been incarcerated in the past for charges such as corruption of minors, drug paraphenalia. There is no evidence that he is currently on probation but he has charges pending. Staff spoke with girlfriend who notes there are no guns in the home (patient has a hx of felony conviction). She reported calling police out of fear for herself and patient as he has made threats in the past to harm her and her ex-. She denied being threatened in yesterday's outburst. She does not plan to file a PFA. She reports that he had Wellbutrin OD in the summer which was significant enough to cause a seizure but she did not involve crisis at that time out of r of retribution. She does not plan to relocate with patient to [place] tomorrow and plans to move out and end the relationship. Physical Exam Psychiatric See admission H&P and DOD assessment. Vital Signs (Past 24 Hours) Last Vital Signs Temp 37 C 06/12/21 06:42 Pulse 94 H 06/12/21 06:43 Resp 16 06/12/21 06:42 BP 135/88 06/12/21 06:43 Pulse Ox 96 06/11/21 23:40 Principal Diagnosis Intermittent Explosive Disorder Psychiatric Data See daily stay summary. In short, safety was maintained until a viable safety plan could be enacted involving family and providing for safety of his now ex- girlfriend. The patient was angry and resistant to care as focussed on discharge but calmed significantly after speaking with his brother. He is accepting of his girlfriend's decision to move out and brother will pick him up later today, supervise him getting his things (after she is gone), and transport him to [place] where he will start work tomorrow. Staff to provide crisis number for that [facility] on safety plan. He does not want assistance re: therapy or PCP. He states he will use urgent care if needed. He voiced understanding that threats to his girlfriend or anyone else in the community would be grounds for legal charges, particularly as being discharged early from a 302 commitment as he does not have evidence of major mood disorder or psychosis interfering with his medical decision making. He is aware that our advice would be for longer period of inpatient monitoring with discharge to outpatient therapy but that ongoing confinement against his will on an involuntary when there is a viable safety plan that eases his financial stressors (main trigger for outburst) would be counter-therapeutic. Factors that can be mitigated on an inpatient unit have been mitigated. Day of Discharge Assessment He is calmer than in ED or on admission. He is consistently denying thoughts to harm self or others and dealt surprisingly well with safety planning. Thoughts remain organized and there is no evidence of psychosis or inability to care for himeslf. He no longer meets criteria for inpatient involuntary commitment. Transition of Care Transition Of Care Record: was reviewed with the patient Advance Directives Advance Directives Information Provided: No (patient refuses to cooperate) Advance Directives: No (patient refuses to cooperate) Mental Health Advance Directive: No (patient refuses to cooperate) Advance Directives on File: No (patient refuses to cooperate) Living Will: No (patient refuses to cooperate) Power of Feeder Driver: No (patient refuses to cooperate) Advance Directives Reason:: Declines as Mental Health Visit. Risk Factors Assessment Male: Yes : Yes Do You Have Access To A Gun?: No Substance Use Disorders: Yes (past) Previous Attempt: Yes (he and girlfriend differ on reports) Previous Psychiatric Hospitalization: No Protective Factors Assessment Employed: No (lost job 3 days ago) Stable Relationships: No Supportive Family: Yes Total Time Total Time Spent: Greater Than 30 Minutes Discharge Data Lab Results 06/11/21 06/11/21 06/11/21 16:34 16:34 16:34 WBC 9.37 RBC 5.14 Hgb 16.3 Hct 46.9 MCV 91.2 MCH 31.7 MCHC 34.8 RDW Std Deviation 43.8 RDW Coeff of [place] 13.0 Plt Count 310 MPV 9.6 Immature Gran % (Auto) 0.3 Neut % (Auto) 74.8 Lymph % (Auto) 14.1 [place] % (Auto) 8.1 Eos % (Auto) 2.1 Baso % (Auto) 0.6 Neut # (Auto) 7.00 H Lymph # (Auto) 1.32 [place] # (Auto) 0.76 H Eos # (Auto) 0.20 Baso # (Auto) 0.06 Immature Gran # (Auto) 0.03 H Sodium 140 Potassium 4.0 Chloride 105 Carbon Dioxide 28 Anion Gap 7 BUN 12 Creatinine 0.93 Est Cr Clr Drug Dosing 130.3 Est GFR ( Amer) 122.8 Est GFR (Non-Af Amer) 106.0 BUN/Creatinine Ratio 12.9 Glucose 87 Calcium 9.9 Total Bilirubin 0.5 AST 53 H ALT 102 H Alkaline Phosphatase 67 Total Protein 8.1 Albumin 4.6 Globulin 3.5 Albumin/Globulin Ratio 1.3 TSH 0.986 Urine Color Urine Appearance Urine pH Ur Specific [place] Urine Protein Urine Glucose (UA) Urine Ketones Urine Blood Urine Nitrite Urine Bilirubin Urine Urobilinogen Ur Leukocyte Esterase Nasal Screen MRSA (PCR) Salicylates Urine Opiates Screen Ur Methadone, Qual Acetaminophen Urine Barbiturates Ur Phencyclidine (PCP) U Amphetamin/Meth Scrn MDMA (Ecstasy) Screen U Benzodiazepines Scrn Ur Cocaine Metabolite U Marijuana (THC) Screen Ethyl Alcohol mg/dL SARS-CoV-2, RNA, NAAT 06/11/21 06/11/21 06/11/21 16:34 16:34 16:40 WBC RBC Hgb Hct MCV MCH MCHC RDW Std Deviation RDW Coeff of [place] Plt Count MPV Immature Gran % (Auto) Neut % (Auto) Lymph % (Auto) [place] % (Auto) Eos % (Auto) Baso % (Auto) Neut # (Auto) Lymph # (Auto) [place] # (Auto) Eos # (Auto) Baso # (Auto) Immature Gran # (Auto) Sodium Potassium Chloride Carbon Dioxide Anion Gap BUN Creatinine Est Cr Clr Drug Dosing Est GFR ( Amer) Est GFR (Non-Af Amer) BUN/Creatinine Ratio Glucose Calcium Total Bilirubin AST ALT Alkaline Phosphatase Total Protein Albumin Globulin Albumin/Globulin Ratio TSH Urine Color Yellow Urine Appearance Clear Urine pH 5.5 Ur Specific [place] 1.014 Urine Protein Negative Urine Glucose (UA) Negative Urine Ketones Negative Urine Blood Negative Urine Nitrite Negative Urine Bilirubin Negative Urine Urobilinogen Negative Ur Leukocyte Esterase Negative Nasal Screen MRSA (PCR) Salicylates < 3.0 L Urine Opiates Screen Ur Methadone, Qual Acetaminophen < 3 L Urine Barbiturates Ur Phencyclidine (PCP) U Amphetamin/Meth Scrn MDMA (Ecstasy) Screen U Benzodiazepines Scrn Ur Cocaine Metabolite U Marijuana (THC) Screen Ethyl Alcohol mg/dL < 10.0 SARS-CoV-2, RNA, NAAT 06/11/21 06/11/21 06/11/21 16:40 22:08 22:08 WBC RBC Hgb Hct MCV MCH MCHC RDW Std Deviation RDW Coeff of [place] Plt Count MPV Immature Gran % (Auto) Neut % (Auto) Lymph % (Auto) [place] % (Auto) Eos % (Auto) Baso % (Auto) Neut # (Auto) Lymph # (Auto) [place] # (Auto) Eos # (Auto) Baso # (Auto) Immature Gran # (Auto) Sodium Potassium Chloride Carbon Dioxide Anion Gap BUN Creatinine Est Cr Clr Drug Dosing Est GFR ( Amer) Est GFR (Non-Af Amer) BUN/Creatinine Ratio Glucose Calcium Total Bilirubin AST ALT Alkaline Phosphatase Total Protein Albumin Globulin Albumin/Globulin Ratio TSH Urine Color Urine Appearance Urine pH Ur Specific [place] Urine Protein Urine Glucose (UA) Urine Ketones Urine Blood Urine Nitrite Urine Bilirubin Urine Urobilinogen Ur Leukocyte Esterase Nasal Screen MRSA (PCR) Negative Salicylates Urine Opiates Screen Neg Ur Methadone, Qual Neg Acetaminophen Urine Barbiturates Neg Ur Phencyclidine (PCP) Neg U Amphetamin/Meth Scrn Neg MDMA (Ecstasy) Screen Neg U Benzodiazepines Scrn Neg Ur Cocaine Metabolite Neg U Marijuana (THC) Screen Pos H Ethyl Alcohol mg/dL SARS-CoV-2, RNA, NAAT NEGATIVE Hospital Course (1) Intermittent explosive disorder: The patient was admitted to the [facility] ([facility] mental health unit) on q15 min checks (behavioral with suicide precautions) for safety. The patient denies need for outpatient follow up and is difficult to engage in group programming as he is so focussed on discharge. Brother was contacted for additional collateral and states patient has never acted out with him, he is working with patient's girlfriend and separately with patient here on safety planning. The patient's girlfriend was educated re: [place] [facility] and is in the process of vacating the apartment to stay with family. Post Discharge Appointments Primary Care Physician Name Of Family Doctor: [facility] - Dr. Arley Horton Primary Care Date of Appointment with PCP: 08/04/21 Time of Appointment with PCP: 2:40 p.m. Provider Appointment Comment: [id number] [place] [address] [facility], [facility] Contact Information Discharge Discharge Address: [address] [place] [address] Discharge Plan Discharge Items Patient Disposition: Home - Self-Care Reason For Visit: MOOD DISORDER Discharge Diagnosis: Intermittent Explosive Disorder Activity: Resume your previous activity Non-emergency contact: Primary Care Provider Call non-emergency contact if: you have any medication questions and your symptoms worsen Follow-up/Referrals: Rose Black MD [Primary Care Provider] - Diet: Regular Addtl Attending Provider Instructions: SPECIAL CARE INSTRUCTIONS: 1. Follow through with your scheduled aftercare appointments. If unable to keep an appointment, please call to reschedule. 2. N/A Take your medication only as prescribed. Medication should not be changed or stopped without the approval of your doctor. In the event of worsening symptoms or concerns about side effects, contact your doctor immediately. 3. Utilize new healthy coping skills, anger management skills, and stress management skills learned during your hospitalization. Journal feelings and process them with a support person. Identify stressors or situations that may result in relapse, deterioration or inappropriate behaviors and develop a plan to deal with those issues. 4. If your coping skills are ineffective and you are in crisis, contact your outpatient providers for direction. If unable to reach your providers, please call the [facility] CRISIS LINE AT , go to the [facility] walk-in center at [address], [address], [place], or go to the closest Emergency Room. 5. Avoid alcohol and un-prescribed drugs. 6. You have been provided with the Mental Health Advance Directives Pamphlet for your review. 7. Your condition is stable for discharge to outpatient level of care, but recovery is an ongoing process. Ifthoughts to harm yourself or others return, follow the safety plan developed during your stay. Planning for a safe return home includes securing weapons. Our treatment team recommends weaponsbe removed from the home until your outpatient provider reassesses your progress. In rare cases where the items themselvescannot be removed, guns and ammunitionshould be secured separatelyand keys stored by a reliable personoutside of the home. If you were admitted on an involuntary commitment, the police or other legal authorities may be involved in this process. AFTERCARE APPOINTMENTS: * Please call your insurance company prior to your scheduled appointment to co nfirm your aftercare providers are covered. Take your insurance information to your appointments. WHO TO CALL AND WHEN: Medical Emergencies: For questions or emergencies related to your hospital stay, please contact the Inpatient Behavioral Health Unit at [phone]. A watch and clock repair clerk is on-call 23/10 for the Behavioral Health Unit for emergencies At any time you feel your situation is an emergency, you may also call 911 immediately. Pending Studies at Discharge: No Stand-Alone Forms: [facility] Rentals, Smoking Cessation Medications and DC Order Prescriptions: No Action No Known Home Medications RF: 0 Discharge Orders: Discharge Order (Routine); Ordered 06/12/21 Ordered By: Amanda Pacheco Admission Data Admit Date/Time: 06/12/21 00:20 Attending Provider: Amanda Pacheco Admit Provider: Amanda Pacheco Primary Care Provider: Rose Black Other Interventions: PSY Interdisciplinary Discharge Planning Last Done: 06/12/21 07:48 Coding Level of Care Code 84958 D/C day mgmt > 30 min Diagnoses Intermittent explosive disorder F63.81
[2021-06-15 02:31] LABS: Marijuana Quant, GCMS Urine 197 ng/mL (<5)
== END 2021-06-12 16:55 | disposition home or self-care (01) | DRG 883 ==
LOC: ED 15:21 → 3S 06-12 00:20